=== PATIENT | female | born 1975 | race Caucasian/White ===

== ENCOUNTER → 2016-03-08 | Outpatient (CLI) | payer MEDICAID ==
--- NOTE | 2016-03-08 18:32 | US ---
Complete Pelvic Sonography (Transabdominal and Endovaginal) Clinical History: 40-year-old female with intermenstrual bleeding, dyspareunia, and post-coital bleed ing. The patient's LMP was March 02, 2016, and she is G0. ICD-10 Diagnostic Code: N92.0. Technique: Initially, a curvilinear 5 MHz transducer was used to sonographically evaluate the pelvis, using a full urinary bladder as a window. To better assess the uterine architecture and the adnexal structures, endovaginal pelvic sonography was also performed. Color and spectral Doppler were used. Comparison Study: Pelvic sonography, dated December 19, 2013. Findings: Transabdominal Pelvic Sonography: The uterus is anteverted and slightly anteflexed, measuring 8.0 x 4.4 x 3.3 cm. The right and left ovaries are identified, and appear normal. Endovaginal Pelvic Sonography: The endometrial thickness is 8.3 mm; however, at the fundal endometriu m, there is an oval-shaped well-circumscribed hyperechoic partially vascular lesion, likely represent ing a polyp, measuring 1.0 x 0.6 x 1.2 cm. This is observed on images 26-31. The right ovary measures 2.0 x 2.5 x 2.7 cm, and the left ovary measures 1.4 x 3.4 x 2.9 cm and contains some tiny follicles. Intraovarian vascular flow is documented. The resistive index associated with the right ovary is 0.6 1. and with the left ovary is 0.50. There is a tiny amount of free fluid in the posterior cul-de-sac. Impression: 1. There is a 12-mm fundal polyp with some intrinsic vascular flow. 2. Normal appearance of the ovaries with a tiny amount of free fluid in the posterior cul-de-sac. The re is no dominant cystic or solid adnexal mass, or torsion. There is no free fluid.
== END ==
LOC: BRMIMAGING 11:34
PROVIDERS: ATTEND Nurse Practitioner
DX: N84.0 Polyp of corpus uteri (principal)
CPT/HCPCS: 76856-PO

== ENCOUNTER → 2016-06-06 | Outpatient (CLI) | payer MEDICAID | LOC: FIMAGING 13:33 | PROVIDERS: ATTEND Physical Medicine & Rehabilitation | DX: S73.192A Other sprain of left hip, initial encounter (principal) ==

== ENCOUNTER 2016-06-14 05:58 | Day surgery (SDC) | payer MEDICAID ==
[2016-06-14] MEDS ORDERED: LIDOCAINE 1% 2 ML INJ ONE (06:33)
[2016-06-14] MEDS ORDERED: SILVER NITRATE APPLICATOR 1 APPL TP ONE (06:49)
[2016-06-14 07:24] LABS: COLOR YELLOW; LEUKOCYTE ESTERASE,URINE NEGATIVE (NEGATIVE); NITRITE,URINE NEGATIVE (NEGATIVE)
[2016-06-14] MEDS ORDERED: fentaNYL 100 MCG/2 ML INJ ONE ×2 (07:25→09:44)
[2016-06-14] MEDS ORDERED: PROPOFOL/EMULSION 500 MG/50 ML BOTTLE IV ONE (07:25)
[2016-06-14] MEDS ORDERED: LIDOCAINE 2% 5 ML SDV ONE (07:26)
[2016-06-14] MEDS ORDERED: SCOPOLAMINE HYDROBROMIDE 1.5 MG PATCH TD ONE (07:29)
[2016-06-14] MEDS ORDERED: GLYCOPYRROLATE 0.2 MG/1 ML VIAL ONE (07:39)
[2016-06-14] MEDS ORDERED: MONSELS-FERRIC SUBSULFATE 8 GM SDV TP ONE (07:44)
[2016-06-14] MEDS ORDERED: ONDANSETRON 4 MG/2 ML VIAL ONE (07:46)
[2016-06-14] MEDS ORDERED: DEXAMETHASONE 4 MG/ML VIAL ONE (07:46)
[2016-06-14] MEDS ORDERED: KETOROLAC 30 MG/1 ML SDV ONE (08:51)
--- NOTE | 2016-06-14 13:12 | GOP ---
[f rep st] OPERATIVE REPORT DATE OF OPERATION: 06/14/2016 SURGEON: Carey Christy MD ACIDIZER HELPER: None. ANESTHESIA: General. PREOPERATIVE DIAGNOSIS: Endometrial mass and dysmenorrhea. POSTOPERATIVE DIAGNOSIS: Endometrial mass and dysmenorrhea. PROCEDURE PERFORMED: Dilation and curettage with hysteroscopy and morcellation of an endometrial po lyp. FINDINGS: 1. Exam under anesthesia revealed an anteverted uterus and no adnexal masses. 1. Intraoperative findings revealed multiple polyps within the uterine cavity with the primary poly p arising from the right side of the uterus near the ostia and an additional polyp arising from the left uterine wall. 2. SPECIMENS: Endometrial curettings with endometrial polyps. ESTIMATED BLOOD LOSS: Less than 5 cc. INDICATIONS: Patient is a 40-year-old 0 female with menstrual cycles that were becoming mor e painful and heavier. She also had midcycle bleeding. She had a pelvic ultrasound on March 08, 2016, that showed a 12 mm endometrial mass. The patient was counseled and agreed to proceed with D and C, hysteroscopy for further evaluation. DESCRIPTION OF PROCEDURE: The patient was taken to the operating room, where general anesthesia was found to be adequate. Patient was prepared and draped in normal sterile fashion in dorsal lithotom y position. After placing a weighted speculum and a Milan retractor, the cervix was visualized clear ly. A single-tooth tenaculum was placed on the anterior lip of the cervix. The cervix was gently d ilated up to 6 mm with Hegar dilators with no immediate complications. A 0-degree Truclear hysteros cope was placed into the cervix and advanced into the uterine cavity with no complications. Bilater al ostia were seen clearly. There were multiple polyps visualized with the largest polyp arising fr om the right sidewall in front of the right cornua. There were other polyps seen that appeared to b e arising from the left side of the uterine wall. The 2.9 morcellator was then placed through the h ysteroscope and aligned correctly. The morcellator was activated, and the polyps were removed easil y under direct visualization. All polyps were removed until the cavity was clear. The hysteroscope was then removed. The tenaculum was then removed, and hemostasis was obtained with silver nitrate. All instruments were removed from the patient's vagina, and she was awoken from anesthesia without any complications. COMPLICATIONS: None. IV FLUIDS: 1000 cc. IV FLUID DEFICIT: 200 cc. COMPLICATIONS: None. DRAINS: None. /[id number]/MODL
== END 2016-06-14 11:55 | disposition home or self-care (01) ==
LOC: FPAT 05:58
PROVIDERS: ATTEND Obstetrics & Gynecology
DX: N94.89 Other specified conditions associated with female genital organs and menstrual cycle (principal); N84.0 Polyp of corpus uteri
CPT/HCPCS: 58563; C1782; J1100; J1885; J2405; J2704; J3010

== ENCOUNTER → 2018-07-31 | Outpatient (CLI) | payer OTHER | LOC: BMCIMAGING 10:38 ==